=== PATIENT | female | born 1960 | race Caucasian/White ===

== ENCOUNTER → 2016-11-28 | Outpatient (CLI) | payer OTHER ==
[~2016-11-28] VITALS: Ht 162.6 cm; Wt 134.3 kg
[~2016-11-28] MED LIST: BIOTIN5 MG PO; CLARITIN 10MG T10 MG PO; FERROUS SULFAT325 MG PO; FISH OIL 1,2001 EACH PO; GLIMEPIRIDE4 MG PO; HUMALOG100 UNIT/1 SQ; LANTUS100 UNIT/1 SQ; LASIX20 MG PO; LEVOTHYROXINE25 MCG PO; LIPITOR TAB 2020 MG PO; METOPROLOL SUCC25 MG PO; NEURONTIN 100100 MG PO; ONGLYZA5 MG PO; PANTOPRAZOLE SO40 MG PO; PERCOCET 10-321 EACH PO; SERTRALINE HCL25 MG PO; VITAMIN C 500500 MG PO; XARELTO10 MG PO
[2016-11-28 09:23] LABS: HEMOGLOBIN 11.7 gm/dl (12.3-15.3); RED BLOOD COUNT 4.47 M/UL (4.00-5.10); WHITE BLOOD COUNT 10.2 K/UL (4.5-11.0)
== END ==
LOC: OPSV2 08:00
PROVIDERS: Orthopaedic Surgery
DX: Z01.812 Encounter for preprocedural laboratory examination (principal); Z01.810 Encounter for preprocedural cardiovascular examination; M17.11 Unilateral primary osteoarthritis, right knee
CPT/HCPCS: 36415; 80048; 80051; 81001; 82565; 85027; 86850; 86900; 86901; 87081; 93005

== ENCOUNTER → 2016-12-04 | Outpatient (CLI) | payer OTHER | LOC: LAB 14:39 | DX: Z01.812 Encounter for preprocedural laboratory examination (principal) | CPT/HCPCS: 80051; 82565; 84520; 86850; 86900; 86901 ==

== ENCOUNTER 2016-12-05 05:54 | Inpatient (IN) | payer OTHER ==
[~2016-12-05 05:54] MED LIST changes: -FERROUS SULFAT325 MG PO; -PERCOCET 10-321 EACH PO; -XARELTO10 MG PO
[2016-12-06 05:58] LABS: HEMOGLOBIN 9.9 gm/dl (12.3-15.3); RED BLOOD COUNT 3.78 M/UL (4.00-5.10); WHITE BLOOD COUNT 8.8 K/UL (4.5-11.0)
[2016-12-07 05:21] LABS: HEMOGLOBIN 8.5 gm/dl (12.3-15.3); RED BLOOD COUNT 3.26 M/UL (4.00-5.10); WHITE BLOOD COUNT 9.7 K/UL (4.5-11.0)
[2016-12-07] MEDS ORDERED: PERCOCET 10-321 EACH PO (13:57)
[2016-12-07] MEDS ORDERED: XARELTO10 MG PO (13:57)
[2016-12-07] MEDS ORDERED: FERROUS SULFAT325 MG PO (13:57)
== END 2016-12-07 16:25 | disposition home or self-care (01) | DRG 470 ==
LOC: ZOBSOF 05:54 → ZEROF 12:53 → ZOBSOF 12:53 → M/S 13:24
PROVIDERS: ADMIT Orthopaedic Surgery
PROC: 3E0T3CZ (ICD-10-PCS; 2016-12-05)
PROC: 0SRC0J9 Replacement of Right Knee Joint with Synthetic Substitute, Cemented, Open Approach (ICD-10-PCS; principal; 2016-12-05 09:45)
DX: M17.11 Unilateral primary osteoarthritis, right knee (principal); D62 Acute posthemorrhagic anemia; Z68.43 Body mass index [BMI] 50.0-59.9, adult; M21.161 Varus deformity, not elsewhere classified, right knee; M25.761 Osteophyte, right knee; I12.9 Hypertensive chronic kidney disease with stage 1 through stage 4 chronic kidney disease, or unspecified chronic kidney disease; N18.2 Chronic kidney disease, stage 2 (mild); E11.40 Type 2 diabetes mellitus with diabetic neuropathy, unspecified; E03.9 Hypothyroidism, unspecified; E78.5 Hyperlipidemia, unspecified; D50.9 Iron deficiency anemia, unspecified; M81.0 Age-related osteoporosis without current pathological fracture; M23.8X1 Other internal derangements of right knee; M25.461 Effusion, right knee; K21.9 Gastro-esophageal reflux disease without esophagitis; G47.33 Obstructive sleep apnea (adult) (pediatric); E55.9 Vitamin D deficiency, unspecified; E66.9 Obesity, unspecified; K59.00 Constipation, unspecified; J30.2 Other seasonal allergic rhinitis; F32.9 Major depressive disorder, single episode, unspecified; Z79.84 Long term (current) use of oral hypoglycemic drugs; Z79.4 Long term (current) use of insulin; Z79.899 Other long term (current) drug therapy; Z96.652 Presence of left artificial knee joint; Z90.49 Acquired absence of other specified parts of digestive tract; Z98.49 Cataract extraction status, unspecified eye; Z98.890 Other specified postprocedural states; Z82.49 Family history of ischemic heart disease and other diseases of the circulatory system; Z83.3 Family history of diabetes mellitus
CPT/HCPCS: 36415; 73560; 80048; 80051; 80053; 82565; 82962; 83036; 84443; 84520; 85027; 86850; 86900; 86901; 97110; 97116; 97530; 97535; C1776; J0690; J1200; J2250; J2270; J2405; J2710; J2795; J3010; J3370; J7030; J7120; Q0162